=== PATIENT | female | born 1955 | race Hispanic/Latino ===

== ENCOUNTER 2017-06-27 09:52 | Day surgery (SDC) | payer BC ==
[2017-06-27 10:38] LABS: Basophils # (Auto) 0.1 K/mm3 (0.0-0.1); Basophils % (Auto) 1.1 % (0.0-1.8); Eosinophils # (Auto) 0.2 K/mm3 (0.0-0.4); Eosinophils % (Auto) 2.7 % (0.0-4.3); Hematocrit 35.2 % (30.3-42.9); Hemoglobin 11.9 gm/dl (10.1-14.3); Lymphocytes # (Auto) 1.5 K/mm3 (1.2-5.4); Lymphocytes % (Auto) 26.1 % (13.4-35.0); Mean Corpuscular HGB Conc 34 % (30-34); Mean Corpuscular Hemoglobin 30 pg (28-32); Mean Corpuscular Volume 87 fl (79-97); Monocytes # (Auto) 0.6 K/mm3 (0.0-0.8); Monocytes % (Auto) 10.8 % (0.0-7.3); Platelet Count 180 K/mm3 (140-440); Red Blood Count 4.04 M/mm3 (3.65-5.03); Red Cell Distribution Width 14.1 % (13.2-15.2)
[2017-06-27] MEDS ORDERED: NACL 0.45% 1000 ML 1,000 ML IV SCH (11:00)
[2017-06-27 11:15] LABS: INR 0.94 (0.87-1.13)
[2017-06-27 11:16] LABS: Partial Thromboplastin Time 33.4 Sec. (24.2-36.6)
[2017-06-27] MEDS ORDERED: NACL 0.9% 1,000 ML, VANCOMYCIN VIAL 1,000 MG IR ONE (11:19)
[2017-06-27 11:40] LABS: BUN/Creatinine Ratio 26; Blood Urea Nitrogen 21 mg/dL (7-17); Calcium 9.2 mg/dL (8.4-10.2); Hemolysis Index 2
[2017-06-27] MEDS ORDERED: NACL 0.9% 500 ML IR ONE (13:03)
[2017-06-27] MEDS ORDERED: XYLOCAINE 1% 20 mL ONE ×2 (13:04→13:05)
[2017-06-27] MEDS ORDERED: ANCEF/STERILE WATER 2 GM/20 ML 2 GM/20 ML SYRINGE IV ONE (13:04)
[2017-06-27] MEDS ORDERED: MARCAINE 0.5% 60 ML INFILTRATI ONE (13:04)
[2017-06-27] MEDS: VERSED IV ONE ×3 (13:38→13:53)
[2017-06-27] MEDS: SUBLIMAZE ONE ×3 (13:38→13:53)
[2017-06-27 15:56] VITALS: BP 112/54
== END 2017-06-27 16:15 | disposition home or self-care (01) ==
LOC: CATHLABREC 09:52
PROVIDERS: ATTEND Internal Medicine Cardiovascular Disease
DX: I11.0 Hypertensive heart disease with heart failure (principal); I50.23 Acute on chronic systolic (congestive) heart failure; I42.9 Cardiomyopathy, unspecified; E78.5 Hyperlipidemia, unspecified; Z88.2 Allergy status to sulfonamides; Z88.6 Allergy status to analgesic agent; Z91.040 Latex allergy status; Z79.82 Long term (current) use of aspirin
CPT/HCPCS: 33262; 36415; 80048; 85025; 85610; 85730; 93005; 93010; 99156; 99157; C1722; J0690; J2250; J3010; J3370; Q9967